=== PATIENT | female | born 1960 | race Caucasian/White ===

== ENCOUNTER 2017-01-23 11:36 | Emergency (ER) | payer OTHER ==
[2017-01-23] MEDS ORDERED: Aspirin 81 MG Tab.Chew PO ONE (11:56)
[2017-01-23] MEDS ORDERED: Nitroglycerin 0.4 MG Tab.SL SL PRN (11:56)
[2017-01-23] MEDS ORDERED: Sodium Chloride 0.9% 10 ML Syringe FLUSH PRN (11:56)
[2017-01-23 12:42] LABS: CHLORIDE,CL 96 mmol/L (98-107); SODIUM,NA 134 mmol/L (136-145)
[2017-01-23 18:26] VITALS: BP 144/87
--- NOTE | 2017-01-23 22:35 | ER ---
Date of Service: 01/23/2017 REASON FOR VISIT: Chest pain. HISTORY: This 56-year-old white female presents with a history of chest pain that started today about 10:30. She was sitting at a computer, just doing computer work at her place of employment. She started to have some mid chest pressure sensation with some shortness of breath. Symptoms lasted maybe 5-10 minutes. It did go into her back and midscapular area and also to the right shoulder. The symptoms in the back and the right shoulder persistent, so she arrived in the emergency room. Since October she has been having problems with her blood pressure, has been elevated in the 160s to 170 systolic range. She has been seen by internal medicine and [facility] in [place]. They have elected not to place her on medications and they felt that her symptoms may be due mainly to anxiety and they started her on some, what sounds like citalopram. PAST MEDICAL HISTORY: Anxiety, hypertension, cardiac murmur secondary to tricuspid regurgitation, chronic frontal sinusitis. She has had 2 sinus surgeries; one in July 2016 and the other in October 2015. She is currently on antibiotics for that. She has also had bilateral PE tubes placed recently. MEDICATIONS: Current medications are Ritalin 10 mg daily for what sounds like a sleep disorder, Singulair 10 mg daily, [place] p.r.n., albuterol p.r.n., prednisone eye drops, multivitamins, estrogen vaginal tablet. ALLERGIES: None known. REVIEW OF SYSTEMS: She has had no nausea or vomiting. No change in bowel habits. No sweats. OBJECTIVE: General: She is alert. She is afebrile. Vital Signs: Blood pressure was 142/95, pulse is 76, respirations are 16, O2 sats 98%. HEENT: TMs reveal bilateral PE tubes. Throat is clear. NECK: Supple. No adenopathy. Heart: Regular rate and rhythm with a holosystolic murmur heard. Lungs: Clear to auscultation. Abdomen: Benign. No masses palpable. Extremities: Warm and dry. No edema. LABORATORY DATA: EKG shows a normal sinus rhythm. No acute changes. White count is 7.2, hemoglobin 15.5, D-dimer is negative. Sodium 134, potassium 3.6, creatinine 0.8. Magnesium is normal. LFT's are normal. Initial troponin was negative. Repeat troponin 4 hours post pain is also normal. Chest x-ray is unremarkable. TREATMENT IN EMERGENCY ROOM: She was given 4 baby aspirin. She was given 1 sublingual nitroglycerin which resolved her back and shoulder pain. Her chest pain had previously resolved prior to arrival. ASSESSMENT: Chest pain, unclear etiology. Differential would include angina and/or anxiety. PLAN: 1. Patient was reassured. Recommend taking aspirin 81 mg daily. 2. Add metoprolol succinate 25 mg 1 daily #30 to treat hypertension and potential coronary artery disease. 3. Follow up with her primary provider next week. 4. Recommend cardiac exercise stress test. 5. Call or return if problems or concerns. FM: 01/23/2017 15:52:52 MODL: 01/23/2017 22:26:22 /[id number]
== END 2017-01-23 15:40 | disposition home or self-care (01) ==
LOC: VM.ED 11:36
DX: R07.9 Chest pain, unspecified (principal); F41.9 Anxiety disorder, unspecified; I10 Essential (primary) hypertension; Z79.899 Other long term (current) drug therapy
CPT/HCPCS: 36415; 71010; 80053; 83735; 84484; 85025; 85379; 93005; 99285; A9270

== ENCOUNTER 2022-07-11 06:47 | Day surgery (SDC) | payer OTHER ==
[2022-07-11] MEDS ORDERED: Lactated Ringers 1,000 ML IV SCH (07:00)
[2022-07-11] MEDS ORDERED: Propofol 200 MG/20 ML SDV ONE (08:41)
[2022-07-11] MEDS ORDERED: Midazolam 1 MG/ML 2 ML SDV ONE (08:41)
[2022-07-11] MEDS ORDERED: fentaNYL 100 MCG/2 ML SDV ONE (08:41)
[2022-07-11 09:43] VITALS: BP 132/70; PULSE 50
== END 2022-07-11 10:10 | disposition home or self-care (01) ==
LOC: VM.SDS 06:47
PROVIDERS: ATTEND Student in an Organized Health Care Education/Training Program
DX: Z12.11 Encounter for screening for malignant neoplasm of colon (principal); I10 Essential (primary) hypertension; E66.9 Obesity, unspecified; F41.9 Anxiety disorder, unspecified; Z98.890 Other specified postprocedural states; Z90.49 Acquired absence of other specified parts of digestive tract; Z79.899 Other long term (current) drug therapy; Z68.29 Body mass index [BMI] 29.0-29.9, adult
CPT/HCPCS: 00812; 45378; J2250; J2704; J3010; J7120